=== PATIENT | female | born 2005 | race Two or more races ===

== ENCOUNTER 2024-03-25 12:34 | Outpatient (CLI) | payer OTHER, MEDICAID ==
[2024-03-25 13:00] VITALS: BP 104/66; PULSE 74; RESP 20; TEMP 97.2; O2SAT 98
== END 2024-03-25 14:30 | disposition home or self-care (01) ==
LOC: CSU 12:34 → EDSTATUS 05-11 10:35
PROVIDERS: ATTEND Nurse Practitioner Acute Care
DX: F41.9 Anxiety disorder, unspecified (principal)
CPT/HCPCS: 90839; 90840